=== PATIENT | male | born 1975 | race Caucasian/White ===

== ENCOUNTER 2025-01-13 10:01 | Emergency (ER) | payer OTHER, SELFPAY ==
[2025-01-13 10:12] VITALS: BP 131/86; PULSE 63; RESP 20; TEMP 37.3; O2SAT 97; BMI 29.6
--- NOTE | 2025-01-13 11:07 | CRLHL7_ITS ---
For Patients: As a result of the 21st Century Cures Act, medical imaging exams and procedure reports are released immediately into your electronic medical record. You may view this report before your referring provider. If you have questions, please contact your health care provider. INDICATION: Right lower quadrant abdominal pain COMPARISON: None TECHNIQUE: CT examination of the abdomen and pelvis was performed following the uneventful intravenous administration of 93 cc of Isovue 370. Thin section axial images were obtained from the lung bases through the pubic symphysis. Oral contrast was not administered. Please note that all CT scans at this facility use dose modulation, iterative reconstruction, and/or weight-based dosing when appropriate to reduce radiation dose to as low as reasonably achievable. FINDINGS: LUNG BASES: The lung bases as visualized appear normal.The heart size is normal at the lung bases. LIVER/BILIARY SYSTEM:Normal-sized liver. There are 2 indeterminate hepatic lesions in the right lobe. One measures 1.9 centimeters on series 2, image 20 and the other measures 1.6 centimeters on series 2, image 32.These are not cysts. They are statistically most likely hemangiomas. Recommend further evaluation in the nonacute setting. MRI would be the study of choice. The gallbladder appears normal. No biliary ductal dilation. ADRENALS: Normal KIDNEYS, URETERS and BLADDER:Normal-sized kidneys. No obstructive uropathy. Left renal cyst. Ureters are of normal caliber. There is bladder wall thickening which is probably due to the underdistended state. However, cystitis is possible. Correlate with urinalysis. SPLEEN:Normal appearance. PANCREAS: Appears normal. RETROPERITONEUM and MESENTERY: There is no mass, adenopathy or aortic aneurysm. GASTROINTESTINAL SYSTEM: Stomach appears normal. Small bowel is visualized appears normal. The appendix is identified and is unremarkable. There is diffuse diverticulosis involving a significant portion of the colon. However, there is no finding of acute diverticulitis. No definite evidence of colitis or mechanical obstruction of small bowel or large bowel. PELVIS: No mass, adenopathy or free fluid. OSSEOUS STRUCTURES and ABDOMINAL WALL: Degenerative changes. Minimal loss of height of L4, probably chronic. OTHER: No free fluid or free air. IMPRESSION: 1. There are 2 indeterminate hepatic lesions. They are not likely to be cysts and are statistically most likely hemangiomas. However, recommend follow-up formal evaluation in the nonacute setting such as multiphase CT or multiphase MRI. 2. Extensive diverticulosis involving a significant portion of the colon. However, there is no evidence of diverticulitis, colitis or obstruction. The appendix is identified and appears normal. 3. Bladder wall thickening which may be due to underdistended state. Cystitis is possible. Correlate with urinalysis 4. Other nonacute appearing findings as above Please note that all CT scans at this facility use dose modulation, iterative reconstruction, and/or weight-based dosing when appropriate to reduce radiation dose to as low as reasonably achievable. Dictated by Son Hernandez MD @ 01/13/2025 11:46:14 AM (Electronically Signed)
[2025-01-13 11:23] LABS: Lactate* 0.8 mmol/L (0.5-1.9)
[2025-01-13 11:25] LABS: Hematocrit* 42.7 % (37.0-53.0); Hemoglobin* 14.3 gm/dL (13.5-17.5); Immature Granulocytes Abs Auto 0.01 K/uL (0.00-0.30); Immature Granulocytes Pct Auto 0.1 %; Mean Corpuscular HGB Conc 34 gm/dL (32-36); Mean Corpuscular Hemoglobin 31 pg (26-34); Mean Corpuscular Volume 92 fL (80-100); RDW Coefficient of Variation % 13.9 % (11.5-15.5); Red Blood Count* 4.65 m/uL (4.30-5.90); White Blood Count* 8.53 K/uL (4.50-11.00)
--- NOTE | 2025-01-13 11:28 | ED.GENADULT ---
HPI - General Adult General Chief complaint: Abdominal Pain Stated complaint: R side pain Time Seen by Provider: 01/13/25 11:02 Source: patient Mode of arrival: ambulatory Limitations: no limitations History of Present Illness HPI narrative: 49-year-old male presenting today with abdominal pain with some present for about 2 months. Pain is located in the right lower quadrant and right flank. Nothing seems to make it better or worse. Patient states he has lost about 20 lb in the last several weeks. He states that he vomits periodically. Denies constipation, states that he has 1-2 stools per day that are usually very soft. No dark or tarry stools. States that his urine has been the color of apple juice recently which is unusual for him. He denies fevers or chills. Related Data Previous Rx's ?Medication ?Instructions ?Recorded ciprofloxacin HCl 500 mg tablet 500 mg PO BID 7 days #14 tabs 01/13/25 Allergies Allergy/AdvReac Type Severity Reaction Status Date / Time bee venom protein (honey bee) Allergy Verified 01/13/25 10:16 Influenza Virus Vaccines Allergy Rash Verified 01/13/25 10:16 Review of Systems Status of ROS: Reports: 10 or more systems reviewed and unremarkable except as noted in History and below [facility] Medical History Maceration of skin ?L98.8 - Other specified disorders of the skin and subcutaneous tissue (ICD-10) History of methamphetamine abuse ?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, in remission (ICD-10) Syncope and collapse ?R55 - Syncope and collapse (ICD-10) Hx of compression fracture of spine ?Z87.81 - Personal history of (healed) traumatic fracture (ICD-10) Surgical History History of hernia repair ?Z98.890 - Other specified postprocedural states (ICD-10) ?Z87.19 - Personal history of other diseases of the digestive system (ICD-10) Family History Father Myocardial infarction Aunt Myocardial infarction Mother Diabetes Paternal Grandmother Myocardial infarction Sister High blood pressure Uncle Depression Social History Smoking Status: Current every day smoker What tobacco products do you use: cigarettes Do you use any of these nicotine containing products: None How often do you have six or more drinks on one occasion: Less than monthly AUDIT-C Alcohol total score: 1 Non-prescribed substance use: marijuana (any form) Exam Narrative: Exam Narrative: Well-nourished well-developed patient in no acute distress. Alert and oriented. Answers questions appropriately. Mood and affect are appropriate. Thoughts are goal oriented and rational. No tangential or magical thinking noted. Patient speaks in full sentences without needing to catch his breath. HEENT: Normocephalic atraumatic. Pupils are equally round reactive to light. Extraocular muscles are intact. Conjunctivae are moist without any icterus noted. Moist mucous membranes. Posterior pharynx is normal. Neck is soft without lymphadenopathy. Poor dentition. Cardiovascular: Heart is regular rate and rhythm S1 and S2 are present without any murmurs. Lungs: Clear to auscultation bilaterally no wheezes rhonchi or rales are appreciated. Patient takes deep breaths without any discomfort. Abdomen: Soft and nondistended with normal bowel sounds. Patient has right lower quadrant tenderness. No CVA tenderness. He states that the rest of the abdomen is mildly tender as well. He does have mild suprapubic discomfort. Extremities: Bilateral lower extremities are without edema. Skin: Well perfused. Const: Vital Signs, click to edit/add: Vital Signs - 24 hr 01/13/25 10:12 Temperature 99.1 F Pulse Rate [Right Pulse Oximeter] 63 Respiratory Rate 20 Blood Pressure [Ri ght Upper Arm] 131/86 Pulse Oximetry 97 Course Course ED Course: Blood work is unremarkable. Urinalysis shows hematuria. Abdominal CT scan does show bladder wall thickening. Vital Signs Vital signs: Initial Vital Signs Temperature 99.1 F 01/13/25 10:12 Temperature Source Temporal Artery Scan 01/13/25 10:12 Pulse Rate 63 01/13/25 10:12 Pulse Rhythm Regular 01/13/25 10:12 Pulse Strength 3+ Normal 01/13/25 10:12 Respiratory Rate 20 01/13/25 10:12 Blood Pressure 131/86 01/13/25 10:12 Blood Pressure Mean 101 01/13/25 10:12 Blood Pressure Position Sitting 01/13/25 10:12 Pulse Oximetry 97 01/13/25 10:12 Vital Signs Temperature 99.1 F 01/13/25 10:12 Pulse Rate 63 01/13/25 10:12 Respiratory Rate 20 01/13/25 10:12 Blood Pressure 131/86 01/13/25 10:12 Pulse Oximetry 97 01/13/25 10:12 Temperature 99.1 F 01/13/25 10:12 Pulse Rate 63 01/13/25 10:12 Respiratory Rate 20 01/13/25 10:12 Blood Pressure 131/86 01/13/25 10:12 Pulse Oximetry 97 01/13/25 10:12 Medical Decision Making MDM Narrative Medical decision making narrative: 49-year-old male with abdominal pain for several months. Workup concerning for potential UTI. Certainly could have had a stone present that was not seen on imaging. No evidence of systemic infection found. Recommend antibiotic treatment with ciprofloxacin for 7 days. Recommend follow-up after 7 days to repeat UA to make sure hematuria has resolved, if it has not resolved, then recommend follow-up with Urology. Lab Data Lab results reviewed: Yes I reviewed the patient's lab results Labs: Lab Results 01/13/25 01/13/25 Range/Units 11:15 11:20 WBC 8.53 (4.50-11.00) K/uL RBC 4.65 (4.30-5.90) m/uL Hgb 14.3 (13.5-17.5) gm/dL Hct 42.7 (37.0-53.0) % MCV 92 (80-100) fL MCH 31 (26-34) pg MCHC 34 (32-36) gm/dL RDW Coeff of Tae 13.9 (11.5-15.5) % Plt Count 375 (140-440) K/uL Neut % (Auto) 78.8 H (42.0-72.0) % Lymph % (Auto) 14.0 L (20-44) % [place] % (Auto) 5.2 (0.0-11.0) % Eos % (Auto) 1.5 (0.0-7.0) % Baso % (Auto) 0.4 (0.0-3.0) % Neut # (Auto) 6.70 (1.7-7.0) K/uL Lymph # (Auto) 1.20 (0.90-2.90) K/uL [place] # (Auto) 0.40 (0.00-0.90) K/UL Eos # (Auto) 0.13 (0.00-0.50) K/uL Baso # (Auto) 0.03 (0.00-0.30) K/uL Abs Immat Gran (auto) 0.01 (0.00-0.30) K/uL Imm/Tot Granulo (auto) 0.1 % Sodium 138 (135-149) mmol/L Potassium 4.1 (3.6-5.1) mmol/L Chloride 105 (96-114) mmol/L Carbon Dioxide 30 (20-32) mmol/L Anion Gap 3 L (7-15) mEq/L BUN 12 (5-24) mg/dL Creatinine 0.7 (0.5-1.5) mg/dL Estimated Creat Clear 121.97 Estimated GFR 114 ml/min Glucose 98 (60-115) mg/dL Lactate 0.8 (0.5-1.9) mmol/L Calcium 8.9 (8.4-10.6) mg/dL Total Bilirubin 0.5 (0.1-1.5) mg/dL Direct Bilirubin 0.2 (0.0-0.5) mg/dL AST 26 (12-35) U/L ALT 19 (4-50) U/L Alkaline Phosphatase 73 (40-150) U/L C-Reactive Protein 0.7 (0.5-1.0) mg/dL Total Protein 7.3 (6.0-8.3) g/dL Albumin 4.3 (3.3-5.0) g/dL Lipase 66 (23-300) U/L Urine Color Yellow (Yellow) Urine Appearance Clear (Clear) Urine pH 6.5 (5.0-8.5) Ur Specific [place] 1.025 (1.000-1.030) Urine Protein Negative (Negative) Urine Glucose (UA) Negative (Negative) Urine Ketones 2+ A (Negative) Urine Blood 2+ A (Negative) Urine Nitrite Negative (Negative) Urine Bilirubin Negative (Negative) Urine Urobilinogen 0.2 (0.2-1.0) Ur Leukocyte Esterase Negative (Negative) Urine RBC 10-25 A (0-2) Urine WBC 2-5 (0-5) Ur Squamous Epith Cells None (None-Few) Urine Bacteria None (None) Urine Mucus Few A (None) Imaging Data CT scan - abdomen: Attestation: I have reviewed the pertinent imaging results. Radiologist's impression: TECHNIQUE: CT examination of the abdomen and pelvis was performed following the uneventful intravenous administration of 93 cc of Isovue 370. Thin section axial images were obtained from the lung bases through the pubic symphysis. Oral contrast was not administered. Please note that all CT scans at this facility use dose modulation, iterative reconstruction, and/or weight-based dosing when appropriate to reduce radiation dose to as low as reasonably achievable. FINDINGS: LUNG BASES: The lung bases as visualized appear normal.The heart size is normal at the lung bases. LIVER/BILIARY SYSTEM:Normal-sized liver. There are 2 indeterminate hepatic lesions in the right lobe. One measures 1.9 centimeters on series 2, image 20 and the other measures 1.6 centimeters on series 2, image 32.These are not cysts. They are statistically most likely hemangiomas. Recommend further evaluation in the nonacute setting. MRI would be the study of choice. The gallbladder appears normal. No biliary ductal dilation. ADRENALS: Normal KIDNEYS, URETERS and BLADDER:Normal-sized kidneys. No obstructive uropathy. Left renal cyst. Ureters are of normal caliber. There is bladder wall thickening which is probably due to the underdistended state. However, cystitis is possible. Correlate with urinalysis. SPLEEN:Normal appearance. PANCREAS: Appears normal. RETROPERITONEUM and MESENTERY: There is no mass, adenopathy or aortic aneurysm. GASTROINTESTINAL SYSTEM: Stomach appears normal. Small bowel is visualized appears normal. The appendix is identified and is unremarkable. There is diffuse diverticulosis involving a significant portion of the colon. However, there is no finding of acute diverticulitis. No definite evidence of colitis or mechanical obstruction of small bowel or large bowel. PELVIS: No mass, adenopathy or free fluid. OSSEOUS STRUCTURES and ABDOMINAL WALL: Degenerative changes. Minimal loss of height of L4, probably chronic. OTHER: No free fluid or free air. IMPRESSION: 1. There are 2 indeterminate hepatic lesions. They are not likely to be cysts and are statistically most likely hemangiomas. However, recommend follow-up formal evaluation in the nonacute setting such as multiphase CT or multiphase MRI. 2. Extensive diverticulosis involving a significant portion of the colon. However, there is no evidence of diverticulitis, colitis or obstruction. The appendix is identified and appears normal. 3. Bladder wall thickening which may be due to underdistended state. Cystitis is possible. Correlate with urinalysis 4. Other nonacute appearing findings as above Discharge Plan Discharge Clinical Impression: Bladder infection Patient Disposition: Home, Self-Care Condition: Stable Additional Instructions: Your bladder wall was found to be swollen on the CT scan and there is blood in the urine. This could signify a bladder infection. We will treat with antibiotics for the next week. You need to follow-up with your primary care provider in about 7-10 days to have a repeat urine test done to make sure that the blood has cleared out of your urine. If it has not, you may need to have a specialist appointment with a urologist. The other thing that was found on your CT scan today was 2 lesions on the liver which are likely just large blood vessels, however your primary care provider may opt to do further imaging to get a better look. These are not causing your pain. We will send you home today with a report of your CT scan that you should sure with your primary care provider when you see them next in 7-10 days. Prescriptions: New ciprofloxacin HCl 500 mg tablet 500 mg PO BID 7 Days Qty: 14 0RF Follow Up/Referrals: Yissel Webb APRN, [facility] [Primary Care Provider, Family Practice] Stand Alone Forms: [employer] Info Instructions
[2025-01-13 11:33] LABS: Appearance Urine Clear (Clear)
[2025-01-13 11:38] LABS: Chloride* 105 mmol/L (96-114); Sodium* 138 mmol/L (135-149)
[2025-01-13 11:39] LABS: Albumin* 4.3 g/dL (3.3-5.0); Potassium* 4.1 mmol/L (3.6-5.1)
[2025-01-13 11:42] LABS: Alanine Aminotransferase* 19 U/L (4-50); Alkaline Phosphatase* 73 U/L (40-150); Anion Gap 3 mEq/L (7-15); Aspartate Amino Transferase* 26 U/L (12-35); Bilirubin Direct* 0.2 mg/dL (0.0-0.5); Bilirubin Total* 0.5 mg/dL (0.1-1.5); Blood Urea Nitrogen* 12 mg/dL (5-24); Calcium* 8.9 mg/dL (8.4-10.6); Carbon Dioxide* 30 mmol/L (20-32); Creatinine* 0.7 mg/dL (0.5-1.5); Est. Creatinine Clearance* 121.97; Estimated Glomerular Filt Rate 114 ml/min; Glucose* 98 mg/dL (60-115); Total Protein* 7.3 g/dL (6.0-8.3)
[2025-01-13 12:28] VITALS: PULSE 59; RESP 16; O2SAT 97
[2025-01-13 12:30] VITALS: PULSE 63; O2SAT 96
[2025-01-13 12:35] LABS: Lymphocytes Absolute Auto 1.20 K/uL (0.90-2.90); Slide Review Reflex No
[2025-01-13 12:45] VITALS: PULSE 58; RESP 16; O2SAT 94
[2025-01-13 13:00] VITALS: PULSE 58; RESP 16; O2SAT 96
== END 2025-01-13 13:17 | disposition home or self-care (01) ==
PROVIDERS: Emergency Provider Family Medicine; PCP Nurse Practitioner Family
DX: N30.90 Cystitis, unspecified without hematuria (principal); R10.31 Right lower quadrant pain; R11.10 Vomiting, unspecified
CPT/HCPCS: 36415; 74177; 80048; 80076; 81001; 83605; 83690; 85025; 86140; 87086; 99284; 99285; Q9967

== ENCOUNTER 2025-01-27 12:49 | Outpatient (CLI) | payer OTHER, SELFPAY | END 2025-01-27 12:50 | disposition home or self-care (01) | PROVIDERS: PCP Nurse Practitioner Family; Visit Provider Nurse Practitioner Family | DX: R19.7 Diarrhea, unspecified (principal) | CPT/HCPCS: 80306; 81001; 87086 ==

== ENCOUNTER 2025-02-02 08:48 | Outpatient (CLI) | payer OTHER, SELFPAY | END 2025-02-02 08:49 | disposition home or self-care (01) | LOC: NFLDREF 02-03 03:36 | PROVIDERS: PCP Nurse Practitioner Family; Referring Provider Nurse Practitioner Family; Visit Provider Nurse Practitioner Family | DX: R19.7 Diarrhea, unspecified (principal) | CPT/HCPCS: 87045; 87046; 87177; 87209; 87427; 87493; 87505; 87798 ==

== ENCOUNTER 2025-02-14 08:57 | Outpatient (CLI) | payer OTHER, SELFPAY ==
--- NOTE | 2025-02-14 09:15 | CRLHL7_ITS ---
For Patients: As a result of the Century Cures Act, medical imaging exams and procedure reports are released immediately into your electronic medical record. You may view this report before your referring provider. If you have questions, please contact your health care provider. INDICATION: Follow-up liver lesions TECHNIQUE: 1.5 T MRI of the abdomen performed with pre and postcontrast T1 weighted imaging; T2 weighted imaging; in and out of phase imaging; diffusion weighted imaging. 15 mL Dotarem IV COMPARISON: CT abdomen pelvis 01/13/2025 FINDINGS: Lungs: The lung bases are clear. No pleural or pericardial effusion. Liver: Homogeneous liver parenchyma. Two right hepatic lobe T2 hyperintense cystic lesions with early discontinuous peripheral arterial enhancement that fills in on delayed post-contrast sequences compatible with hemangiomas. Biliary tree and gallbladder: No intra or extrahepatic biliary dilation. Fluid-filled gallbladder without stones. Spleen: Unremarkable Pancreas: Normal pancreatic parenchyma. No pancreatic masses. No pancreatic duct dilation. Adrenal glands: Unremarkable. Kidneys and ureters: No renal masses or hydronephrosis. Mildly complex left inferior pole renal cyst with few thin enhancing septations measuring 1.5 cm GI tract: No evidence of obstruction or inflammation. Vasculature: The IVC and aorta are patent. No abdominal aortic aneurysm. Lymph nodes: No lymphadenopathy. Abdominal wall: Unremarkable Bones: Bone marrow signal is within normal limits IMPRESSION: 1. Two right hepatic lobe cystic lesions are compatible with hemangiomas. 2. Mildly complex left inferior pole renal cyst with few thin enhancing septations measuring 1.5 cm ([place] 2) Dictated by Shaila Hunter MD @ 02/14/2025 3:03:26 PM (Electronically Signed)
== END 2025-02-14 08:58 | disposition home or self-care (01) ==
LOC: MRI 08:59
PROVIDERS: PCP Nurse Practitioner Family; Visit Provider Nurse Practitioner Family
DX: K76.9 Liver disease, unspecified (principal); K76.89 Other specified diseases of liver; N28.1 Cyst of kidney, acquired
CPT/HCPCS: 74183; A9575